=== PATIENT | female | born 1945 | race Caucasian/White ===

== ENCOUNTER → 2019-08-30 | Outpatient (CLI) | payer MEDICARE ==
[~2019-08-30] VITALS: Ht 157.5 cm; Wt 58.5 kg
[~2019-08-30] MED LIST: ASPI-556 PO; ATOR10TA84 PO; CALC1TAB15 PO; CHOL500043 PO; ERGO500054 PO; LOSA-88 PO; MAGN200T5 PO; VIT1CAPS21 PO
[2019-08-30 11:00] VITALS: BP 124/70
== END | disposition home or self-care (01) ==
LOC: SRCNTR 10:59
PROVIDERS: ATTEND Internal Medicine Cardiovascular Disease
DX: I42.9 Cardiomyopathy, unspecified (principal); M54.5 Low back pain; E78.5 Hyperlipidemia, unspecified; R94.31 Abnormal electrocardiogram [ECG] [EKG]; E85.81 Light chain (AL) amyloidosis; Z94.89 Other transplanted organ and tissue status; Z92.21 Personal history of antineoplastic chemotherapy
CPT/HCPCS: 93005; G0463

== ENCOUNTER → 2020-08-08 | Outpatient (CLI) | payer MEDICARE ==
[~2020-08-08] VITALS: Ht 157.5 cm; Wt 58.0 kg
[~2020-08-08] MED LIST changes: -CHOL500043 PO; -LOSA-88 PO
[2020-08-08 14:21] VITALS: BP 125/69
== END | disposition home or self-care (01) ==
LOC: SRCNTR 14:04
PROVIDERS: ATTEND Internal Medicine Cardiovascular Disease
DX: R94.31 Abnormal electrocardiogram [ECG] [EKG] (principal); E78.5 Hyperlipidemia, unspecified; M54.5 Low back pain; E85.9 Amyloidosis, unspecified
CPT/HCPCS: 93005; G0463

== ENCOUNTER → 2021-01-31 | Outpatient (CLI) | payer MEDICARE | END | disposition home or self-care (01) | LOC: RADPV 08:26 | PROVIDERS: ATTEND Internal Medicine Cardiovascular Disease | DX: I05.1 Rheumatic mitral insufficiency (principal); E85.9 Amyloidosis, unspecified | CPT/HCPCS: 93306 ==

== ENCOUNTER → 2021-02-11 | Outpatient (CLI) | payer MEDICARE ==
[~2021-02-11] VITALS: Ht 154.9 cm; Wt 55.9 kg
[2021-02-11 15:07] VITALS: BP 109/61
== END | disposition home or self-care (01) ==
LOC: SRCNTR 14:44
PROVIDERS: ATTEND Internal Medicine Cardiovascular Disease
DX: I51.7 Cardiomegaly (principal); E78.5 Hyperlipidemia, unspecified; M54.5 Low back pain; E85.9 Amyloidosis, unspecified; Z94.84 Stem cells transplant status
CPT/HCPCS: G0463; Z7500

== ENCOUNTER → 2021-03-03 | Outpatient (CLI) | payer MEDICARE ==
[~2021-03-03] VITALS: Ht 157.5 cm; Wt 56.2 kg
[2021-03-03 11:23] VITALS: BP 122/63
== END | disposition home or self-care (01) ==
LOC: SRCNTR 10:54
PROVIDERS: ATTEND Internal Medicine Cardiovascular Disease
DX: E85.9 Amyloidosis, unspecified (principal); E78.5 Hyperlipidemia, unspecified; M54.5 Low back pain; Z94.84 Stem cells transplant status
CPT/HCPCS: G0463; Z7500